=== PATIENT | male | born 1990 | race Caucasian/White ===

== ENCOUNTER 2022-06-08 22:55 | Emergency (ER) | payer OTHER, MEDICAID, SELFPAY ==
--- NOTE | ~2022-06-08 | XR_ITS ---
EXAMINATION: XR chest 1V portable INDICATION: Chest pain TECHNIQUE: Portable AP chest at 1119 hours COMPARISON: None available FINDINGS: The lungs are free of acute opacities. No pleural effusion or pneumothorax. The cardiomedia stinal silhouette is normal. The visualized osseous structures are unremarkable. IMPRESSION: 1. No acute cardiopulmonary abnormality. Reviewed, dictated and finalized at location A.
--- NOTE | 2022-06-08 22:56 | ECG_ITS ---
Measurements Intervals [place] Rate: 96 P: 64 VT: 171 QRS: 78 QRSD: 93 T: 46 QT: 344 QTc: 436 Interpretive Statements SINUS RHYTHM WITH SINUS ARRHYTHMIA NONSPECIFIC T-WAVE ABNORMALITY BORDERLINE ECG NO PREVIOUS ECG AVAILABLE FOR COMPARISON Electronically Signed On 06-09-2022 14:36:25 CDT by Thong Delgado M.D.
[2022-06-08 23:04] VITALS: BP 145/95; PULSE 93; RESP 16; TEMP 36.8; O2SAT 100
--- NOTE | 2022-06-08 23:09 | ED.CHESTPAIN ---
HPI - Chest Pain General Chief Complaint: Chest Pain Stated Complaint: Left arm pain, chest pain yesterday and today Time Seen by Provider: 06/08/22 23:02 History of Present Illness HPI narrative: 31-year-old male presents emergency room secondary to discomfort in his chest. Had episode yesterday describes it as sharp type pain in the midportion of his chest. It came on after eating some fast food . Denies any pressure or heaviness in his chest. No history of cardiac disease. No family history of cardiac disease. He is a non-smoker and rarely consumes alcohol. He states today he had some nonspecific numb feeling to his left arm so he got concerned that maybe this is from his heart so he came to the emergency room. Denies any exertional chest pain or shortness of breath. He been a healthy latia with no significant medical problems. He does have a history of some reflux type symptoms in the past. Related Data Allergies Allergy/AdvReac Type Severity Reaction Status Date / Time No Known Allergies Allergy Verified 06/08/22 23:09 Review of Systems Review of Systems: CONSTITUTIONAL: Denies fever, chills, or sweats. EYES: Denies visual changes, redness, or discharge. ENT: Denies rhinorrhea, congestion, sore throat, or otalgia. CARDIOVASCULAR: Sharp chest pain. No palpitations. No edema. RESPIRATORY: Denies cough or dyspnea. GASTROINTESTINAL: Denies abdominal pain, nausea, vomiting, or diarrhea. GENITOURINARY: Denies dysuria or hematuria. SKIN: Denies rash or itching. MUSCULOSKELETAL: Denies back pain, joint pain, or myalgia. NEUROLOGIC: Denies headache or weakness.. Some numb type feeling to his left arm PSYCHIATRIC: Denies anxiety or depression. PMFSH Past Medical History Medical History No pertinent past medical history Social History Social History Smoking status: Never smoker Alcohol intake: current Alcohol use details: Rarely Occupation/Education: occupation Additional occupation/education comments: Works at a [employer] Exam Narrative: APPEARANCE: Well appearing, no pain or distress, well-nourished. Head Normocephalic and atraumatic. EYES: PERRLA/EOMI, conjunctivae clear. NOSE: Normal with no drainage EARS:TMS clear with Qiu, with good light reflex. THROAT: Pharynx clear, no exudate. NECK: Supple. No adenopathy, no masses. RESPIRATORY: Airway patent, respirations nonlabored. Clear to auscultation bilaterally, no rales, rhonchi, wheezing. CARDIOVASCULAR: Regular rate and rhythm without murmurs, rubs, or gallops. ABDOMINAL: Soft, nontender, nondistended, no hepatosplenomegaly Musculoskeletal: Moves all extremities. Strength/ROM intact, No edema, No calf tenderness. NEURO: Alert. Cranial nerves II through XII intact. Normal gait. Good coordination. Nonfocal examination. SKIN:: Warm, dry. Normal Color PSYCHIATRIC: Normal affect/mood, normal interaction Course Vital Signs Vital signs: Vital Signs Temperature 98.3 F 06/08/22 23:04 Pulse Rate 93 06/08/22 23:04 Respiratory Rate 16 06/08/22 23:04 Blood Pressure 145/95 H 06/08/22 23:04 Pulse Oximetry 100 06/08/22 23:04 Oxygen Delivery Room Air 06/08/22 23:04 Temperature 98.3 F 06/08/22 23:04 Pulse Rate 93 06/08/22 23:04 Respiratory Rate 16 06/08/22 23:04 Blood Pressure 145/95 H 06/08/22 23:04 Pulse Oximetry 100 06/08/22 23:04 Oxygen Delivery Room Air 06/08/22 23:04 MDM - Chest Pain MDM Narrative Medical decision making narrative: Work-up and evaluation in the emergency room is completely unremarkable. Troponin is noted be normal. Reviewed all of this with the patient. He has no risk factors for cardiac disease. His presentation is not typical for ischemic type cardiac chest pain. I explained to the patient I would anticipate that this discomfort he is having should go away on its own. However he contin
[2022-06-08 23:20] LABS: Basophils Percent Auto 0.6 % (0.2-1.2); Eosinophils Absolute Auto 0.1 K/mm3 (0-0.3); Eosinophils Percent Auto 1.7 % (0-4.4); Hematocrit 46.4 % (42.0-52.0); Hemoglobin 16.2 g/dL (14.0-18.0); Immature Granulocyte Absolute 0.01 K/mm3 (0.00-0.031); Immature Granulocyte Percent A 0.1 % (0-0.5); Lymphocytes Absolute Auto 2.51 K/mm3 (0.9-3.2); Lymphocytes Percent Auto 35.3 % (18.3-44.2); Mean Corpuscular HGB Conc 34.9 g/dl (32-36); Mean Corpuscular Hemoglobin 30.5 pg (26-34); Mean Corpuscular Volume 87.4 fl (80-100); Mean Platelet Volume 10.2 fl (7.4-10.4); Monocytes Absolute Auto 0.5 K/mm3 (0.1-0.6); Neutrophils Absolute Auto 3.9 K/mm3 (1.3-6.7); Neutrophils Percent Auto 55.3 % (45.5-73.1); Platelet Count Result 224 k/mm3 (150-375); Red Blood Count 5.31 M/mm3 (4.6-6.20); Red Cell Distribution Width 12.2 % (11.5-14.5); White Blood Count 7.1 K/mm3 (4.5-10.0)
[2022-06-08 23:30] LABS: Alanine Aminotransferase 18 U/L (6-50); Albumin Level 4.4 g/dL (3.5-5.1); Alkaline Phosphatase 98 U/L (38-126); Anion Gap 8 mmol/L (8-16); Aspartate Amino Transferase 21 U/L (17-59); Bilirubin,Total 0.8 mg/dL (0.2-1.3); Blood Urea Nitrogen 11 mg/dL (9-20); Calcium 9.3 mg/dL (8.4-10.2); Carbon Dioxide 28 mmol/L (22-30); Chloride 101 mmol/L (98-107); Estimated Glomerular Filt Rate > 60; Glucose 100 mg/dL (65-110); Potassium 3.6 mmol/L (3.4-5.0); Sodium 137 mmol/L (137-145)
[2022-06-08 23:57] LABS: Troponin I < 0.012 ng/mL (0.000-0.034)
[2022-06-09 00:10] VITALS: BP 118/83; PULSE 70; RESP 20; O2SAT 98
== END 2022-06-09 00:13 | disposition home or self-care (01) ==
PROVIDERS: Emergency Provider Emergency Medicine
DX: R07.89 Other chest pain (principal); R94.31 Abnormal electrocardiogram [ECG] [EKG]
CPT/HCPCS: 36415; 71045; 80053; 84484; 85025; 93005; 99284